=== PATIENT | male | born 1960 | race Native Hawaiian/Other Pacific Islander ===

== ENCOUNTER 2022-08-23 15:52 | Outpatient (CLI) | payer BC ==
[2022-08-23 16:06] LABS: PLATELET COUNT 177 K/uL (142-355)
[2022-08-23 16:22] LABS: POTASSIUM 3.9 mmol/L (3.6-5.2)
== END 2022-08-23 19:00 | disposition home or self-care (01) ==
LOC: LABW 15:52
PROVIDERS: ATTEND Internal Medicine
DX: K86.2 Cyst of pancreas (principal)
CPT/HCPCS: 36415; 80053; 83690; 85027; 86316

== ENCOUNTER 2022-09-05 08:36 | Outpatient (CLI) | payer BC | END 2022-09-05 19:02 | disposition home or self-care (01) | LOC: LABW 08:36 | PROVIDERS: ATTEND Internal Medicine Gastroenterology | DX: D64.9 Anemia, unspecified (principal) | CPT/HCPCS: 36415; 82607; 82728; 82746; 83540; 83550 ==